=== PATIENT | male | born 1985 | race Caucasian/White ===

== ENCOUNTER 2021-03-12 06:00 | Outpatient (RCR) | payer BC, SELFPAY | END 2021-04-06 23:59 | disposition home or self-care (01) | LOC: MPT 06:00 | PROVIDERS: PCP Nurse Practitioner Family; Referring Provider Nurse Practitioner Family; Visit Provider Nurse Practitioner Family | DX: S16.1XXD Strain of muscle, fascia and tendon at neck level, subsequent encounter (principal); X58.XXXD Exposure to other specified factors, subsequent encounter | CPT/HCPCS: 97110; 97140; 97161; 97530 ==

== ENCOUNTER 2021-07-15 09:26 | Outpatient (CLI) | payer BC, SELFPAY ==
--- NOTE | 2021-07-15 09:44 | XR_ITS ---
WS: [id number] CHEST 2 VIEWS HISTORY: COUGH COMPARISON: None available. Lungs: Clear with no abnormality. No pleural effusion or pneumothorax. Cardiac size: Normal. Mediastinum/Aorta: Normal mediastinum. Bones: Normal. XR/XR chest 2V* [id number] IMPRESSION: Normal chest.
== END 2021-07-15 09:27 | disposition home or self-care (01) ==
PROVIDERS: PCP Nurse Practitioner Family; Visit Provider Nurse Practitioner Family
DX: R05 Cough (principal)
CPT/HCPCS: 71046

== ENCOUNTER 2021-09-25 13:15 | Outpatient (CLI) | payer BC, SELFPAY ==
--- NOTE | 2021-09-25 13:19 | XR_ITS ---
WS: [id number] Exam: XR hip RT 2-3V wo/w pel* [id number] Date/Time of Exam: 09/25/2021 1:20 PM Reason For Exam: RIGHT HIP PAIN Findings: No fractures or bone anomalies are noted. No unusual soft tissue masses or calcifications are seen. The bony elements of the hip are in adequate alignment. XR/XR hip RT 2-3V wo/w pel* [id number] IMPRESSION: Negative right hip. Tonnis classification: 0
== END 2021-09-25 13:16 | disposition home or self-care (01) ==
PROVIDERS: PCP Nurse Practitioner Family; Visit Provider Nurse Practitioner Family
DX: M25.551 Pain in right hip (principal)
CPT/HCPCS: 73502

== ENCOUNTER 2021-09-30 01:06 | Emergency (ER) | payer BC, SELFPAY ==
[2021-09-30 01:11] VITALS: BP 150/90; PULSE 82; RESP 16; TEMP 36.6; O2SAT 99; BMI 26.4
--- NOTE | 2021-09-30 01:21 | W.ED.MALEGU ---
Documented by User: STEPHEN Scott 09/30/21 03:25 HPI - Male Genitourinary General: Chief complaint: Urogenital-Male Stated complaint: Numbness in private parts Time Seen by Provider: 09/30/21 01:14 History of Present Illness: HPI Narrative: Patient is a 36-year-old male comes to the ED with numbness to genitalia. Patient has a history of lower back pain and degenerative disc disease and lumbar spine. He reports having chronic sciatica pain down right leg. Symptoms of some pain in his groin started about a month ago and he has had an ultrasound of scrotum done in [place] and it came back normal. This morning he woke up and had some numbness to his penis that has been constant throughout the day today. Denies any bladder or bowel incontinence or weakness to lower extremities. His current pain starts in his right lower back and radiates down his right leg. He says it radiates down the back of his thigh and down right groin as well. Denies any dysuria, testicular pain, genital swelling, scrotal swelling or testicular swelling. Denies any injury or trauma to genitalia. Denies any acute worsening pain in lower back since onset of numbness to the penis. Associated symptoms: Deny dysuria, hematuria, nausea or vomiting Review of Systems Const: Denies: fever(s), chills or fatigue Eyes: Denies: change in vision or eye discomfort ENMT: Denies: throat pain, odynophagia, nasal discharge or nasal congestion Card: Denies: chest pain, palpitations, edema, swelling of feet/ankles, dyspnea on exertion or orthopnea Resp: Denies: dyspnea, productive cough or non-productive cough GI: Denies: abdominal pain, nausea, vomiting, diarrhea, constipation or hematochezia : Reports: other (numbness to penis); Denies: flank pain, difficulty urinating, dysuria or hematuria Musc: Reports: back pain; Denies: neck pain or extremity swelling Skin/Breast: Denies: rash or new lesions Neuro: Denies: headache(s), numbness in extremities or weakness in extremities [facility] ED PFSH: Social History Smoking and tobacco status: current every day smoker e-cigarettes E-Cigarette Details: vaporizer device Quit status (tobacco): not considering quitting Second hand smoke exposure: Yes Alcohol intake: current Alcohol intake frequency: holidays/special occasions only Desire information about alcohol rehabilitation?: No Desire information about substance/drug rehabilitation?: No Physical Exam Const: COMMON NORMALS: no acute distress, patient oriented x3, healthy appearing and alert GENERAL APPEARANCE: cooperative and comfortable HENMT: COMMON NORMALS: normocephalic HEAD & SCALP: normocephalic MOUTH: Normal oral and palatal mucosa present THROAT: posterior oropharynx normal and uvula midline Neck/C-Spine: COMMON NORMALS: supple GENERAL: Yes normal visual inspection Resp: COMMON NORMALS: normal respiratory effort, No retractions, No use of accessory muscles and clear to auscultation bilaterally AUSCULTATION: clear to auscultation bilaterally Cardio: COMMON NORMALS: regular rate, regular rhythm, S1 normal heart sound present, S2 normal heart sound present, No gallops present (Cardio), No clicks present (Cardio), No murmurs present (Cardio) and Peripheral pulses 2+ throughout RATE: regular rate RHYTHM: regular rhythm HEART SOUNDS: S1 normal heart sound present and S2 normal heart sound present PERIPHERAL PULSES: Peripheral pulses 2+ throughout GI: COMMON NORMALS: Normal to inspection, nondistended, normoactive bowel sounds present, Soft to palpation, non-tender and no masses PALPATION: Yes Soft to palpation : COMMON NORMALS: Yes no CVA tenderness BLADDER/KIDNEY EXAM: Yes no CVA tenderness Back/Pelvis: COMMON NORMALS: no CVA tenderness LUMBAR SPINE/LOWER BACK: No lumbar spinal tenderness, Yes paraspinal muscle tenderness Lumbar paraspinal muscle tenderness: right Right lumbar paraspinal muscle tenderness: L4 and L5 and Yes straight leg raise positive right Extremity: COMMON NORMALS: normal to inspection Neuro: COMMON NORMALS: patient oriented x3 and moves all extremities SENSORIUM/ORIENTATION: Yes alert Skin: GENERAL SKIN EXAM: dry skin Course ED course: Patient is a 36-year-old male who comes to the ED with numbness to penis. Patient has a history of chronic lower back pain, degenerative disc disease lumbar spine and right-sided sciatic pain. This morning he woke up and felt some numbness/loss of sensation to penis. Denies any dysuria, bladder or bowel incontinence, weakness to lower extremities. Denies any acute worsening lower back pain since onset of numbness symptoms. I performed the initial history, physical exam of patient and ordered CT lumbar spine and image report is pending. At the end of my shift I transferred care patient over to Dr. Pineda and told him I am waiting on the CT lumbar spine report. Vital Signs: Vital signs: Vital Signs Temperature 97.9 F 09/30/21 01:11 Pulse Rate 82 09/30/21 01:11 Respiratory Rate 16 09/30/21 01:11 Blood Pressure 150/90 09/30/21 01:11 Pulse Oximetry 99 09/30/21 01:11 Discharge Plan Discharge Patient Disposition: Home Clinical Impression: Paresthesia Condition: Stable Prescriptions: No Action prednisone 10 mg tablet 30 mg PO DAILY 5 Days Qty: 15 RF: 0 Discharge Orders: Discharge ED (Routine); Ordered 09/30/21 Ordered By: Jarocho Pineda Referrals: Yolie Peña [facility] PATROL DIRECTOR [Primary Care Provider] - 1-3 days Discharge Diet: Advance as tolerated Discharge Activity: Resume usual activity Patient Instructions: Paresthesia (ED) Coding Level of Care Code ED Isotope Hydrologist for Chg Fwd Exam Comprehensive Documented by User: Jarocho Pineda MD 09/30/21 03:49 HPI - Male Genitourinary General: Chief complaint: Urogenital-Male Stated complaint: Numbness in private parts Time Seen by Provider: 09/30/21 01:14 [facility] ED PFSH: Social History Smoking and tobacco status: current every day smoker e-cigarettes E-Cigarette Details: vaporizer device Quit status (tobacco): not considering quitting Second hand smoke exposure: Yes Alcohol intake: current Alcohol intake frequency: holidays/special occasions only Desire information about alcohol rehabilitation?: No Desire information about substance/drug rehabilitation?: No Course Vital Signs: Vital signs: Vital Signs Temperature 97.9 F 09/30/21 01:11 Pulse Rate 82 09/30/21 01:11 Respiratory Rate 16 09/30/21 01:11 Blood Pressure 150/90 11/24/21 01:11 Pulse Oximetry 99 09/30/21 01:11 MDM - Male MDM Narrative: Medical decision making narrative: Patient presents here with paresthesias I took patient over from [facility] he has no back pain is no signs of cord compression patient stable for discharge he is to follow-up with PCP and return if worsening. Imaging Data: Other CT: Attestation: I personally reviewed and interpreted this imaging study as follows: Radiologist's impression: [address] [address] [address] Scan Report Signed Patient: Solo Otto Unit #: [id number] : 1985 Age/Sex: 36 / M ADM Date: 09/30/21 Loc: ER Room/Bed: Attending Dr: Ordering Provider/Ordering MD: Gamaliel Pabon Date of Service: 09/30/21 Procedure(s): CT lumbar spine wo con* [id number] Accession Number(s): [id number] Report Number: [id number] PROCEDURE INFORMATION: Exam: CT Lumbar Spine Without Contrast Exam date and time: 09/30/2021 1:35 AM Age: 36 years old Clinical indication: Right; Patient HX: Patient states sudden onset of numbness to penis. History of RT sided sciatica and chronic low back pain. Additional info: Back pain, numbness in penis. TECHNIQUE: Imaging protocol: Computed tomography images of the lumbar spine without contrast. Radiation optimization: All CT scans at this facility use at least one of these dose optimization techniques: automated exposure control; mA and/or kV adjustment per patient size (includes targeted exams where dose is matched to clinical indication); or iterative reconstruction. COMPARISON: CR XR hip RT 2-3V wo/w pel* [id number] 09/25/2021 1:28 PM RADIATION DOSE METRICS: Total DLP (mGy-cm): 2357.29 FINDINGS: Vertebrae: There is a normal lumbar lordosis. There is normal alignment of the lumbar spine. No fractures or dislocations identified. Vertebral body heights are well maintained throughout. Discs/Spinal canal/Neural foramina: Intervertebral disc heights are well maintained throughout. The bony spinal canal is patent. The neural foramina are patent. Soft tissues: Unremarkable. CT/CT lumbar spine wo con* [id number] IMPRESSION: 1. Unremarkable examination. Radiation Dose CTDIVOL = (mGy): DLP = 2357.29 (mGy-cm) Dictated By: Markel Alvarado MD Signed By: Markel Alvarado MD Signed Date/Time: 09/30/21 0343 DD/ 013 Discharge Plan Discharge Patient Disposition: Home Clinical Impression: Paresthesia Condition: Stable Prescriptions: No Action prednisone 10 mg tablet 30 mg PO DAILY 5 Days Qty: 15 RF: 0 Discharge Orders: Discharge ED (Routine); Ordered 09/30/21 Ordered By: Jarocho Pineda Referrals: Yolie Peña SK[facility] PATROL DIRECTOR [Primary Care Provider] - 1-3 days Discharge Diet: Advance as tolerated Discharge Activity: Resume usual activity Patient Instructions: Paresthesia (ED) Coding Level of Care Code ED Isotope Hydrologist for Chg Fwd Exam Comprehensive
--- NOTE | 2021-09-30 01:35 | CTR_ITS ---
PROCEDURE INFORMATION: Exam: CT Lumbar Spine Without Contrast Exam date and time: 09/30/2021 1:35 AM Age: 36 years old Clinical indication: Right; Patient HX: Patient states sudden onset of numbness to penis. History of RT sided sciatica and chronic low back pain. Additional info: Back pain, numbness in penis. TECHNIQUE: Imaging protocol: Computed tomography images of the lumbar spine without contrast. Radiation optimization: All CT scans at this facility use at least one of these dose optimization techniques: automated exposure control; mA and/or kV adjustment per patient size (includes targeted exams where dose is matched to clinical indication); or iterative reconstruction. COMPARISON: CR XR hip RT 2-3V wo/w pel* [id number] 09/25/2021 1:28 PM RADIATION DOSE METRICS: Total DLP (mGy-cm): 2357.29 FINDINGS: Vertebrae: There is a normal lumbar lordosis. There is normal alignment of the lumbar spine. No fractures or dislocations identified. Vertebral body heights are well maintained throughout. Discs/Spinal canal/Neural foramina: Intervertebral disc heights are well maintained throughout. The bony spinal canal is patent. The neural foramina are patent. Soft tissues: Unremarkable. CT/CT lumbar spine wo con* [id number] IMPRESSION: 1. Unremarkable examination. Radiation Dose CTDIVOL = (mGy): DLP = 2357.29 (mGy-cm)
[2021-09-30 03:49] VITALS: BP 136/71; PULSE 77; RESP 18; O2SAT 96
[2021-09-30 04:11] VITALS: BP 136/71; PULSE 77; RESP 18; O2SAT 96
== END 2021-09-30 04:10 | disposition home or self-care (01) ==
PROVIDERS: Emergency Provider Emergency Medicine; PCP Nurse Practitioner Family
DX: R20.2 Paresthesia of skin (principal); F17.290 Nicotine dependence, other tobacco product, uncomplicated
CPT/HCPCS: 72131; 99282